=== PATIENT | female | born 1990 | race Caucasian/White ===

== ENCOUNTER → 2020-08-12 | Outpatient (CLI) | payer OTHER ==
[~2020-08-12] MED LIST: LEVE500T8 PO; LEVO25TA4 PO; [UNRECOGNIZED DRUG - OTHER] PO
[2020-08-12 11:58] LABS: MICROSCOPIC AUTO
[2020-08-12 12:02] LABS: BASOPHILS % (AUTO) 0 % (0-1); EOSINOPHILS % (AUTO) 1 % (1-7); LYMPHOCYTES % (AUTO) 34 % (22-44); MEAN CORPUSCULAR HEMOGLOBIN 28.3 pg (27.0-34.8); MEAN CORPUSCULAR HGB CONC 33.6 g/dL (32.4-35.8); MEAN PLATELET VOLUME 9.5 fL (7.4-10.4); MONOCYTES % (AUTO) 7 % (2-9); NEUTROPHILS % (AUTO) 58 % (42-75); PLATELET COUNT 245 x10^3/uL (130-400); RED BLOOD COUNT 5.23 x10^6/uL (3.82-5.3); RED CELL DISTRIBUTION WIDTH 13.9 % (9.6-15.2)
[2020-08-12 12:07] LABS: ALANINE AMINOTRANSFERASE 17 U/L (12-78); ALBUMIN 4.4 g/dL (3.4-5.0); ANION GAP 6 mmol/L (5-15); CHLORIDE 109 mmol/L (98-107); CREATININE 0.64 mg/dL (0.55-1.02); MD NO
[2020-08-12 12:08] LABS: INTERNATIONAL NORMALIZED RATIO 1.08 (0.93-1.1); PROTHROMBIN TIME 11.5 Seconds (9.6-11.5)
[2020-08-12 12:10] LABS: ALKALINE PHOSPHATASE 41 U/L (45-117); BILIRUBIN,TOTAL 0.8 mg/dL (0.2-1.0); TOTAL PROTEIN 7.9 g/dL (6.4-8.2)
== END | disposition home or self-care (01) ==
LOC: STAR 10:38
PROVIDERS: ATTEND Neurological Surgery
DX: Z01.818 Encounter for other preprocedural examination (principal); Z01.812 Encounter for preprocedural laboratory examination; Z01.811 Encounter for preprocedural respiratory examination; Z01.810 Encounter for preprocedural cardiovascular examination; C71.9 Malignant neoplasm of brain, unspecified; R82.90 Unspecified abnormal findings in urine; R94.31 Abnormal electrocardiogram [ECG] [EKG]; R79.1 Abnormal coagulation profile; M95.4 Acquired deformity of chest and rib
CPT/HCPCS: 36415; 71046; 80053; 81001; 85025; 85610; 85730; 87086; 93005

== ENCOUNTER → 2020-08-20 | Outpatient (CLI) | payer OTHER ==
[~2020-08-20] MED LIST changes: +GADOTERATE 7.5 MMOL/15ML SYR ONE
== END | disposition home or self-care (01) ==
LOC: RAD 15:12 → MERGE 16:00
PROVIDERS: ATTEND Neurological Surgery
DX: R51.9 Headache, unspecified (principal); G93.89 Other specified disorders of brain; Z20.822 Contact with and (suspected) exposure to COVID-19
CPT/HCPCS: 70552; A9575; U0003

== ENCOUNTER 2020-08-26 10:43 | Inpatient (IN) | payer OTHER ==
[~2020-08-26] VITALS: Ht 170.2 cm; Wt 76.0 kg
[~2020-08-26 10:43] MED LIST changes: +BACITRACIN 50,000 UNIT ONE; +BUPIVACAINE/PF 0.5% ONE; +CEFUROXIME 1.5 GM ONE; +EPINEPHRINE 1 MG/ML, 1ML ONE; -GADOTERATE 7.5 MMOL/15ML SYR ONE; +MANNITOL PMX 20% 500 ML ONE
[2020-08-26] MEDS ORDERED: LIDOCAINE-MPF 1%, 2ML INFIL ONE (12:30)
[2020-08-26] MEDS ORDERED: CHLORHEXIDINE 15 ML UDC MM ONE (12:30)
[2020-08-26] MEDS ORDERED: LACTATED RINGERS 1,000 ML IV SCH (12:30)
[2020-08-26] MEDS ORDERED: FENTANYL PF 250 MCG/5ML ONE (12:56)
[2020-08-26] MEDS ORDERED: MIDAZOLAM 1 MG/ML, 2ML ONE (12:56)
[2020-08-26 13:00] LABS: HCG UR SG 1.011 (1.003-1.030)
[2020-08-26] MEDS ORDERED: THROMBIN 20,000 UNIT VIAL TP ONE (14:01)
[2020-08-26] MEDS ORDERED: DEXAMETHASONE 4 MG/ML, 1ML ONE (14:08)
[2020-08-26] MEDS ORDERED: SUGAMMADEX 200 MG/2 ML IVPush ONE (14:08)
[2020-08-26] MEDS ORDERED: ONDANSETRON 2MG/ML, 2ML ONE ×2 (14:08→16:10)
[2020-08-26] MEDS ORDERED: ROCURONIUM 10 MG/ML,10ML ONE (14:08)
[2020-08-26] MEDS ORDERED: PROPOFOL 10 MG/ML, 20ML ONE (14:08)
[2020-08-26] MEDS ORDERED: SUCCINYLCHOLINE 20 MG/ML, 10ML ONE (14:08)
[2020-08-26] MEDS ORDERED: LEVETIRACETAM 1,000 MG in SODIUM CHLORIDE 0.9% 100 ML IV ONE (15:00)
[2020-08-26] MEDS ORDERED: BACITRACIN OINT 500U/GM, 15 GM ONE (15:23)
[2020-08-26] MEDS ORDERED: FENTANYL PF 100 MCG/2ML ONE (15:58)
[2020-08-26] MEDS ORDERED: OXYcodone 5 MG/5 ML ORAL.SOL UDC ONE (15:58)
[2020-08-26] MEDS ORDERED: PROMETHAZINE 25 MG/ML, 1ML IV PRN (16:00)
[2020-08-26] MEDS ORDERED: BISACODYL 10 MG SUPP PR PRN (16:00)
[2020-08-26] MEDS ORDERED: METOCLOPRAMIDE 5 MG/ML, 2ML IV PRN (16:00)
[2020-08-26] MEDS ORDERED: OXYcodone 5 MG/5 ML ORAL.SOL UDC PO PRN (16:00)
[2020-08-26] MEDS ORDERED: ONDANSETRON 2MG/ML, 2ML IV PRN (16:00)
[2020-08-26] MEDS ORDERED: HYDROmorphone 1 MG/ML, 1ML INJ IV PRN (16:00)
[2020-08-26] MEDS ORDERED: KETOROLAC 30 MG/1 ML IV PRN (16:00)
[2020-08-26] MEDS ORDERED: MEPERIDINE/PF 25MG/0.5ML IVPush PRN (16:00)
[2020-08-26] MEDS ORDERED: LABETALOL 5MG/ML, 20ML IV PRN (16:00)
[2020-08-26] MEDS ORDERED: ONDANSETRON 2MG/ML, 2ML IVPush PRN (16:00)
[2020-08-26] MEDS ORDERED: ACETAMINOPHEN 650 MG/20.3 ML UDC PO PRN (16:00)
[2020-08-26] MEDS ORDERED: MAGNESIUM HYDROXIDE 8%, 30ML UDC PO PRN (16:00)
[2020-08-26] MEDS ORDERED: DIPHENHYDRAMINE 50 MG/ML, 1ML IM PRN (16:00)
[2020-08-26] MEDS ORDERED: FENTANYL PF 100 MCG/2ML IV PRN (16:00)
[2020-08-26] MEDS ORDERED: DIAZEPAM 5 MG/ML, 2ML IV PRN ×2 (16:00)
[2020-08-26] MEDS ORDERED: ALBUTEROL SULFATE 2.5 MG/3 ML NPPB PRN (16:00)
[2020-08-26] MEDS ORDERED: hydrALAzine 20 MG/ML, 1ML IV PRN (16:00)
[2020-08-26] MEDS: LABETALOL 5MG/ML, 20ML IVPush SCH (17:45)
[2020-08-26] MEDS: POTASSIUM CHLORIDE 40 MEQ in SODIUM CHLORIDE 0.9% 1,000 ML IV SCH (17:52)
[2020-08-26] MEDS: CEFAZOLIN PMX 1GM/50ML 50 ML IVPB SCH (17:52)
[2020-08-26] MEDS: HYDROmorphone 2 MG/ML, 1ML IV PRN ×2 (18:08→18:23)
[2020-08-26] MEDS ORDERED: HYDROmorphone 2 MG/ML, 1ML IV PRN (18:30)
[2020-08-26] MEDS: LEVETIRACETAM 500 MG TABLET PO SCH (20:09)
[2020-08-26] MEDS: DIPHENHYDRAMINE 50 MG/ML, 1ML IV PRN (23:26)
[2020-08-27] MEDS: OXYcodone/APAP 5/325MG TABLET PO PRN ×3 (00:46→06:18)
[2020-08-27] MEDS: LABETALOL 5MG/ML, 20ML IVPush SCH ×4 (01:14→23:11)
[2020-08-27] MEDS: CEFAZOLIN PMX 1GM/50ML 50 ML IVPB SCH (02:10)
[2020-08-27] MEDS: POTASSIUM CHLORIDE 40 MEQ in SODIUM CHLORIDE 0.9% 1,000 ML IV SCH ×2 (03:42→16:15)
[2020-08-27 04:33] LABS: BASOPHILS % (AUTO) 0 % (0-1); EOSINOPHILS % (AUTO) 1 % (1-7); LYMPHOCYTES % (AUTO) 10 % (22-44); MEAN CORPUSCULAR HGB CONC 33.1 g/dL (32.4-35.8); MEAN PLATELET VOLUME 9.1 fL (7.4-10.4); MONOCYTES % (AUTO) 9 % (2-9); NEUTROPHILS % (AUTO) 80 % (42-75); PLATELET COUNT 216 x10^3/uL (130-400); RED BLOOD COUNT 4.26 x10^6/uL (3.82-5.3); RED CELL DISTRIBUTION WIDTH 13.6 % (9.6-15.2)
[2020-08-27 04:39] LABS: MD NO
[2020-08-27 04:43] LABS: CHLORIDE 110 mmol/L (98-107); CREATININE 0.59 mg/dL (0.55-1.02)
[2020-08-27 04:51] LABS: ANION GAP 4 mmol/L (5-15)
[2020-08-27] MEDS: LEVOTHYROXINE 25 MCG TABLET PO SCH (06:15)
[2020-08-27] MEDS: [UNRECOGNIZED DRUG - OTHER] HOMEMEDPO SCH (07:25)
[2020-08-27] MEDS: HYDROcodone/APAP 5/325 TABLET PO PRN ×5 (08:09→19:24)
[2020-08-27] MEDS: LEVETIRACETAM 500 MG TABLET PO SCH ×2 (08:09→21:25)
[2020-08-27] MEDS: SENNA/DOCUSATE TABLET PO SCH (08:48)
[2020-08-27] MEDS ORDERED: GADOTERATE 7.5 MMOL/15ML SYR ONE (10:13)
[2020-08-27 12:41] VITALS: BP 97/63
[2020-08-27 19:20] VITALS: BP 98/64
[2020-08-27] MEDS ORDERED: SUMATRIPTAN 50 MG TABLET ONE (19:20)
[2020-08-27] MEDS ORDERED: SUMATRIPTAN 25 MG TABLET PO PRN (19:30)
[2020-08-28] MEDS: DIPHENHYDRAMINE 50 MG/ML, 1ML IV PRN ×2 (00:13→06:14)
[2020-08-28] MEDS: OXYcodone/APAP 5/325MG TABLET PO PRN ×3 (00:13→10:33)
[2020-08-28 00:16] VITALS: BP 95/66
[2020-08-28] MEDS: POTASSIUM CHLORIDE 40 MEQ in SODIUM CHLORIDE 0.9% 1,000 ML IV SCH ×2 (01:19→11:34)
[2020-08-28 05:19] LABS: BASOPHILS % (AUTO) 0 % (0-1); EOSINOPHILS % (AUTO) 7 % (1-7); LYMPHOCYTES % (AUTO) 34 % (22-44); MEAN CORPUSCULAR HEMOGLOBIN 28.7 pg (27.0-34.8); MEAN CORPUSCULAR HGB CONC 33.2 g/dL (32.4-35.8); MEAN PLATELET VOLUME 9.4 fL (7.4-10.4); MONOCYTES % (AUTO) 9 % (2-9); NEUTROPHILS % (AUTO) 50 % (42-75); PLATELET COUNT 208 x10^3/uL (130-400); RED BLOOD COUNT 4.17 x10^6/uL (3.82-5.3)
[2020-08-28 05:20] LABS: MD NO
[2020-08-28] MEDS: LEVOTHYROXINE 25 MCG TABLET PO SCH (06:15)
[2020-08-28 06:40] VITALS: BP 101/70
[2020-08-28] MEDS ORDERED: LEVE500T53 PO (07:30)
[2020-08-28] MEDS ORDERED: OXYC1TAB14 PO (07:30)
[2020-08-28] MEDS: LABETALOL 5MG/ML, 20ML IVPush SCH (08:00)
[2020-08-28] MEDS: LEVETIRACETAM 500 MG TABLET PO SCH (08:34)
[2020-08-28] MEDS: SENNA/DOCUSATE TABLET PO SCH (09:00)
[2020-08-28] MEDS: [UNRECOGNIZED DRUG - OTHER] HOMEMEDPO SCH (09:00)
[2020-08-28] MEDS ORDERED: OXYcodone/APAP 5/325MG TABLET ONE (13:17)
[2020-08-28 13:29] VITALS: BP 109/73
[2020-08-28] MEDS ORDERED: OXYcodone/APAP 5/325MG TABLET PO PRN ×2 (13:30→16:00)
== END 2020-08-28 14:33 | disposition home or self-care (01) | DRG 26 ==
LOC: MERGE 12:00 → ORIP 12:15 → CSU 16:41 → 4NW 08-27 10:14
PROVIDERS: ADMIT Neurological Surgery; ATTEND Neurological Surgery
PROC: 00B00ZX Excision of Brain, Open Approach, Diagnostic (ICD-10-PCS; principal; 2020-08-26 14:30)
DX: C79.31 Secondary malignant neoplasm of brain (principal); R47.01 Aphasia; G40.909 Epilepsy, unspecified, not intractable, without status epilepticus; L29.9 Pruritus, unspecified; T40.2X5A Adverse effect of other opioids, initial encounter; R51.9 Headache, unspecified; Z88.8 Allergy status to other drugs, medicaments and biological substances
CPT/HCPCS: 36415; J3490; S0020; 70553; 80048; 81025; 85025; 86850; 86900; 87081; 88307; C1713; G0378; J0171; J0690; J0697; J1100; J1170; J2250; J2405; J2704; J3010; J3480; A4648; A9575; J0330; J1200; J7030; J7120